=== PATIENT | male | born 1950 | race Two or more races ===

== ENCOUNTER 2019-01-26 07:14 | Outpatient (CLI) | payer OTHER ==
[~2019-01-26 07:14] MED LIST: COZAAR25 MG; KETO10TA2 PO; MOTRIN800 MG PO; ORPH100T PO
== END 2019-01-26 07:26 | disposition home or self-care (01) ==
LOC: SONOGRAMA 07:14 → MAMO-SONO 07:15 → SONOGRAMA 07:26
DX: R10.84 Generalized abdominal pain (principal)

== ENCOUNTER 2019-11-17 12:59 | Emergency (ER) | payer OTHER ==
[~2019-11-17] VITALS: Ht 175.3 cm; Wt 83.9 kg
[2019-11-17] MEDS ORDERED: FORTAMET500 MG (13:33)
[2019-11-17] MEDS ORDERED: LOSARTAN POTAS100 MG (13:33)
== END 2019-11-17 14:37 | disposition home or self-care (01) ==
LOC: ER 12:59
DX: M54.31 Sciatica, right side (principal)

== ENCOUNTER 2019-11-19 09:17 | Outpatient (CLI) | payer OTHER ==
[~2019-11-19 09:17] MED LIST changes: +FORTAMET500 MG; +LOSARTAN POTAS100 MG
== END 2019-11-19 13:53 | disposition home or self-care (01) ==
LOC: LAB 09:17
DX: M46.47 Discitis, unspecified, lumbosacral region (principal); I10 Essential (primary) hypertension; E11.9 Type 2 diabetes mellitus without complications; E03.8 Other specified hypothyroidism; E78.2 Mixed hyperlipidemia; N40.0 Benign prostatic hyperplasia without lower urinary tract symptoms; Z12.11 Encounter for screening for malignant neoplasm of colon

== ENCOUNTER 2019-11-19 10:32 | Outpatient (CLI) | payer OTHER | END 2019-11-19 10:44 | disposition home or self-care (01) | LOC: MRI 10:32 | DX: M46.47 Discitis, unspecified, lumbosacral region (principal) | CPT/HCPCS: 72148 ==

== ENCOUNTER 2020-11-04 08:20 | Outpatient (CLI) | payer OTHER | END 2020-11-04 08:28 | disposition home or self-care (01) | LOC: SONOGRAMA 08:20 | PROVIDERS: ATTEND Internal Medicine Gastroenterology | DX: Q61.02 Congenital multiple renal cysts (principal); K76.0 Fatty (change of) liver, not elsewhere classified; R10.84 Generalized abdominal pain; K80.20 Calculus of gallbladder without cholecystitis without obstruction; K80.80 Other cholelithiasis without obstruction ==

== ENCOUNTER 2020-12-06 04:56 | Day surgery (SDC) | payer OTHER | END 2020-12-06 12:25 | disposition home or self-care (01) | LOC: CIR.AMB 04:56 | PROVIDERS: ATTEND Specialist | DX: K80.10 Calculus of gallbladder with chronic cholecystitis without obstruction (principal); Z20.822 Contact with and (suspected) exposure to COVID-19 ==

== ENCOUNTER 2021-06-20 11:42 | Outpatient (CLI) | payer OTHER | END 2021-06-20 11:55 | disposition home or self-care (01) | LOC: TOM 11:42 | PROVIDERS: ATTEND Specialist | DX: N28.89 Other specified disorders of kidney and ureter (principal); R10.84 Generalized abdominal pain ==

== ENCOUNTER 2022-01-19 08:00 | Outpatient (CLI) | payer OTHER | END 2022-01-19 08:30 | disposition home or self-care (01) | LOC: PPH VACUNA 08:00 | PROVIDERS: ATTEND Emergency Medicine Pediatric Emergency Medicine | DX: Z23 Encounter for immunization (principal) ==